=== PATIENT | male | born 1985 | race Caucasian/White ===

== ENCOUNTER 2016-06-19 06:08 | Emergency (ER) | payer OTHER | END 2016-06-19 13:05 | LOC: ER1 06:08 | DX: S51.812A Laceration without foreign body of left forearm, initial encounter (principal); F17.200 Nicotine dependence, unspecified, uncomplicated; X78.1XXA Intentional self-harm by knife, initial encounter; Z23 Encounter for immunization | CPT/HCPCS: 90715; 99284 ==

== ENCOUNTER 2016-06-28 01:13 | Emergency (ER) | payer OTHER | END 2016-06-28 02:40 | disposition left against medical advice (07) | LOC: ER1 01:13 | DX: Z53.21 Procedure and treatment not carried out due to patient leaving prior to being seen by health care provider (principal) ==

== ENCOUNTER 2020-10-04 08:43 | Emergency (ER) | payer OTHER ==
[2020-10-04 10:01] LABS: HEMOGLOBIN 16.8 gm/dl (14.0-17.5); RED BLOOD COUNT 5.33 M/UL (4.20-5.50); WHITE BLOOD COUNT 16.8 K/UL (4.5-11.0)
[2020-10-04 10:14] LABS: BUN/CREATININE RATIO 14 (0-10)
== END 2020-10-04 11:43 | disposition home or self-care (01) ==
LOC: ER1 08:43
PROVIDERS: Physician Assistant
DX: D72.829 Elevated white blood cell count, unspecified (principal); F10.10 Alcohol abuse, uncomplicated; F15.10 Other stimulant abuse, uncomplicated; F12.10 Cannabis abuse, uncomplicated; F17.210 Nicotine dependence, cigarettes, uncomplicated; Z90.89 Acquired absence of other organs
CPT/HCPCS: 80053; 80307; 82550; 82553; 83874; 84484; 85025; 93005; 99284; G0480; J7030